=== PATIENT | female | born 1945 | race Hispanic/Latino ===

== ENCOUNTER 2023-09-01 10:27 | Day surgery (SDC) | payer OTHER ==
[2023-08-29 12:48] LABS: BASOPHILS # (AUTO) 0.02 K/uL (0.00-0.20); BASOPHILS % (AUTO) 0.4 % (0.0-5.0); EOSINOPHILS # (AUTO) 0.12 K/uL (0.00-0.70); EOSINOPHILS % (AUTO) 2.4 % (0.0-8.0); HEMATOCRIT 42.4 % (36-48); IMMATURE GRANULOCYTE ABSOLUTE 0.02 K/uL (0-1); LYMPHOCYTES # (AUTO) 1.4 K/uL (1.0-4.8); LYMPHOCYTES % (AUTO) 27.6 % (21.0-51.0); MEAN CORPUSCULAR HEMOGLOBIN 27.4 pg (27.0-33.0); MEAN CORPUSCULAR HGB CONC 32.8 g/dL (32.0-36.0); MEAN CORPUSCULAR VOLUME 83.5 fL (79-99); MONOCYTES # (AUTO) 0.3 K/uL (0.1-1.0); MONOCYTES % (AUTO) 6.7 % (3.0-13.0); NEUTROPHILS # (AUTO) 3.2 K/uL (1.8-7.7); NEUTROPHILS % (AUTO) 62.5 % (40.0-77.0); PLATELET COUNT (AUTO) 187 K/uL (130-400); RED BLOOD CELL COUNT(AUTO) 5.08 MIL/uL (4.00-5.50); RED CELL DISTRIBUTION WIDTH 13.7 % (11.0-15.5); WHITE BLOOD COUNT (AUTO) 5.1 K/uL (4.8-10.8)
[2023-08-29 13:01] LABS: INR <= 0.93 (0.85-1.15); PROTHROMBIN TIME 10.7 SEC (9.6-11.6)
[2023-08-29 13:03] LABS: CREATININE 0.6 mg/dL (0.5-1.5); POTASSIUM 4.8 mmol/L (3.5-5.1)
[2023-08-29 14:44] VITALS: BP 161/61; PULSE 75; RESP 18
[~2023-09-01] VITALS: Ht 152.4 cm; Wt 61.8 kg
[~2023-09-01 10:27] MED LIST: ALBUMIN (HUMAN) 5% 500 ML IV ONE; DEXAMETHASONE SOD PHOSPHATE 10MG/ML 1ML VIAL ONE; FENTANYL CITRATE PF 50 MCG/1 ML 2ML VIAL ONE; GLYCOPYRROLATE 0.2 MG/ML 5 ML VIAL ONE; LIDOCAINE PF 100MG/5ML (2%) SYRINGE 5ML ONE; MAGNESIUM PO; MIDAZOLAM HCL 1 MG/ML 2ML VIAL ONE; NEOSTIGMINE METHYLSULFATE 1MG/ML IV ONE; ONDANSETRON 4MG INJ ONE; PROPOFOL 10 MG/ML 20ML VIAL IV ONE; ROCURONIUM BROMIDE 10MG/1ML 5ML VL ONE; ROPIVACAINE 0.5% 5MG/ML 30ML ONE; SUCCINYLCHOLINE CHLORIDE 20 MG/ML 10 ML VIAL ONE; VITAMIN B12 PO; VITAMIN D3 PO
[2023-09-01] MEDS ORDERED: 0.9%NACL 1000ML 1,000 ML IV ONE (11:58)
[2023-09-01] MEDS ORDERED: LIDOCAINE HCL 400MG/20ML VIAL ONE (12:33)
[2023-09-01] MEDS ORDERED: MIDAZOLAM HCL 1 MG/ML 2ML VIAL ONE (12:33)
[2023-09-01] MEDS ORDERED: FENTANYL CITRATE PF 50 MCG/1 ML 2ML VIAL ONE (12:33)
[2023-09-01] MEDS ORDERED: IOHEXOL-350 50ML VIAL IV ONE (12:33)
== END 2023-09-01 13:25 | disposition home or self-care (01) ==
LOC: DAH 10:27
PROVIDERS: ATTEND Student in an Organized Health Care Education/Training Program
DX: K80.62 Calculus of gallbladder and bile duct with acute cholecystitis without obstruction (principal); Z79.899 Other long term (current) drug therapy; Z98.890 Other specified postprocedural states; Z90.710 Acquired absence of both cervix and uterus; Z79.01 Long term (current) use of anticoagulants; Z90.11 Acquired absence of right breast and nipple; Z98.41 Cataract extraction status, right eye; Z90.49 Acquired absence of other specified parts of digestive tract
CPT/HCPCS: 80048; 85025; 85610; 85730; 36415; 47531; P9045; J0330; J2001; J2795; J3490; J7030; Q9967; A4215; A4222; A4221; A4663; A4216; A4606; A4223 ×3; J1100; J2250; J2405; J2704; J2710; J3010

== ENCOUNTER 2023-10-15 09:12 | Day surgery (SDC) | payer OTHER ==
[2023-10-14] MEDS: INDOMETHACIN 100 MG SUPP.RECT RC ONE (11:05)
[~2023-10-15] VITALS: Ht 149.9 cm; Wt 61.7 kg
[2023-10-15] VITALS (16 sets, daily range): BP systolic 148–163; BP diastolic 66–81; PULSE 81–97; RESP 14–17
[~2023-10-15 09:12] MED LIST changes: +0.9%NACL 1000ML 1,000 ML IV ONE; -ALBUMIN (HUMAN) 5% 500 ML IV ONE; -DEXAMETHASONE SOD PHOSPHATE 10MG/ML 1ML VIAL ONE; -FENTANYL CITRATE PF 50 MCG/1 ML 2ML VIAL ONE; -GLYCOPYRROLATE 0.2 MG/ML 5 ML VIAL ONE; -LIDOCAINE PF 100MG/5ML (2%) SYRINGE 5ML ONE; -MIDAZOLAM HCL 1 MG/ML 2ML VIAL ONE; -NEOSTIGMINE METHYLSULFATE 1MG/ML IV ONE; -ONDANSETRON 4MG INJ ONE; -PROPOFOL 10 MG/ML 20ML VIAL IV ONE; -ROCURONIUM BROMIDE 10MG/1ML 5ML VL ONE; -ROPIVACAINE 0.5% 5MG/ML 30ML ONE; -SUCCINYLCHOLINE CHLORIDE 20 MG/ML 10 ML VIAL ONE
[2023-10-15] MEDS ORDERED: SUCCINYLCHOLINE CHLORIDE 20 MG/ML 10 ML VIAL ONE (10:56)
[2023-10-15] MEDS ORDERED: PROPOFOL 10 MG/ML 20ML VIAL IV ONE (10:56)
[2023-10-15] MEDS ORDERED: IOHEXOL-350 50ML VIAL IV ONE (10:56)
[2023-10-15] MEDS ORDERED: FENTANYL CITRATE PF 50 MCG/1 ML 2ML VIAL ONE (10:56)
[2023-10-15] MEDS ORDERED: GLYCOPYRROLATE 0.2 MG/ML 5 ML VIAL ONE (10:57)
[2023-10-15] MEDS ORDERED: ONDANSETRON 4MG INJ ONE (11:20)
== END 2023-10-15 13:10 | disposition home or self-care (01) ==
LOC: ENDO 09:12 → DAH 09:12 → ENDO 13:10
PROVIDERS: ATTEND Internal Medicine
DX: R93.2 Abnormal findings on diagnostic imaging of liver and biliary tract (principal); K80.50 Calculus of bile duct without cholangitis or cholecystitis without obstruction; K21.9 Gastro-esophageal reflux disease without esophagitis; Z90.710 Acquired absence of both cervix and uterus; Z98.890 Other specified postprocedural states; Z90.10 Acquired absence of unspecified breast and nipple; Z80.0 Family history of malignant neoplasm of digestive organs
CPT/HCPCS: 43262; 74328; 43264; J3010; J0330; J7030 ×2; J2704; J2405; J3490; Q9967; A4620; A4215 ×2; A4223; A4657; A7002; A4222; A4221; A4663; A4606; C1769; C1773; 74330